=== PATIENT | female | born 1990 | race Caucasian/White ===

== ENCOUNTER 2019-07-07 00:05 | Inpatient (IN) | payer BC, SELFPAY ==
[2019-07-07] VITALS (95 sets, daily range): BP systolic 95–168; BP diastolic 43–105; PULSE 52–199; RESP 16; TEMP 36.6–36.7; O2SAT 98–100; BMI 32.8
[2019-07-07 01:10] LABS: Basophils Percent Auto 0.3 % (0.2-1.2); Hematocrit 34.8 % (37.0-47.0); Hemoglobin 11.6 g/dL (12.0-15.0); Immature Granulocyte Absolute 0.07 K/mm3 (0.00-0.031); Immature Granulocyte Percent A 0.5 % (0-0.5); Lymphocytes Absolute Auto 2.93 K/mm3 (0.9-3.2); Lymphocytes Percent Auto 21.1 % (18.3-44.2); Mean Corpuscular HGB Conc 33.3 g/dl (32-36); Mean Corpuscular Hemoglobin 28.1 pg (26-34); Mean Corpuscular Volume 84.3 fl (80-100); Mean Platelet Volume 12.5 fl (7.4-10.4); Monocytes Absolute Auto 0.9 K/mm3 (0.1-0.6); Monocytes Percent Auto 6.5 % (2.6-8.5); Neutrophils Percent Auto 71.6 % (45.5-73.1); Platelet Count Result 251 k/mm3 (150-375); Red Blood Count 4.13 M/mm3 (4.2-5.4); Red Cell Distribution Width 13.6 % (11.5-14.5); White Blood Count 13.9 K/mm3 (4.5-10.0)
[2019-07-07] MEDS: DINOPROSTONE 10 MG VAG INSERT VAGINAL (01:15)
--- NOTE | 2019-07-07 08:32 | WPDANESEPP ---
Anes - Eval Pre Procedure Procedure: Labor epidural Date/Time: 07/07/19 08:32 Surgeon: [place] Preop Diagnosis: pain during labor Pre Op Diagnosis: Induction Patient Data Age: 28 Gender: F Height: 1.78 m Weight: 104 kg Last Vital Signs Temp 36.7 C 07/07/19 08:16 Pulse 60 07/07/19 08:30 BP 108/61 07/07/19 08:30 Allergies Allergy/AdvReac Type Severity Reaction Status Date / Time amoxicillin Allergy Swelling Verified 06/15/19 15:41 Penicillins Allergy Swelling Verified 06/15/19 15:41 sulfamethoxazole Allergy Swelling Verified 06/15/19 15:41 [From Bactrim] trimethoprim [From Bactrim] Allergy Swelling Verified 06/15/19 15:41 Home Medications Medication Instructions Recorded Confirmed Type PNV cmb#95-ferrous fumarate-FA 1 tablet PO DAILY 06/15/19 06/15/19 History [] aspirin [Aspirin Low Dose] 81 mg PO DAILY 06/15/19 06/15/19 History ergocalciferol (vitamin D2) 1,250 mcg PO WEEKLY 06/15/19 06/15/19 History [Vitamin D2] Laboratory Tests 07/07/19 07/07/19 07/07/19 01:04 01:04 01:04 WBC 13.9 K/mm3 H K/mm3 (4.5-10.0) RBC 4.13 M/mm3 L M/mm3 (4.2-5.4) Hgb 11.6 g/dL L g/dL (12.0-15.0) Hct 34.8 % L % (37.0-47.0) MCV 84.3 fl fl (80-100) MCH 28.1 pg pg (26-34) MCHC 33.3 g/dl g/dl (32-36) RDW 13.6 % % (11.5-14.5) Plt Count 251 k/mm3 k/mm3 (150-375) MPV 12.5 fl H fl (7.4-10.4) Immature Gran % (Auto) 0.5 % % (0-0.5) Neut % (Auto) 71.6 % % (45.5-73.1) Lymph % (Auto) 21.1 % % (18.3-44.2) [place] % (Auto) 6.5 % % (2.6-8.5) Eos % (Auto) 0.0 % % (0-4.4) Baso % (Auto) 0.3 % % (0.2-1.2) Lymph # (Auto) 2.93 K/mm3 K/mm3 (0.9-3.2) [place] # (Auto) 0.9 K/mm3 H K/mm3 (0.1-0.6) Eos # (Auto) 0.0 K/mm3 K/mm3 (0-0.3) Baso # (Auto) 0.0 K/mm3 K/mm3 (0.0-0.1) Abs Immat Gran (auto) 0.07 K/mm3 H K/mm3 (0.00-0.031) Absolute Neuts (auto) 10.0 K/mm3 H K/mm3 (1.3-6.7) Absolute Nucleated RBC 0.0 K/mm3 K/mm3 (0.0-0.012) Nucleated RBC % 0.0 % % (0.0-0.2) RPR Pending Blood Type A Positive Antibody Screen Negative Patient hx anesthesia problems: none Family hx anesthesia problems: none PMFSH Past Medical History Medical History (Updated 07/07/19 @ 08:33 by Lisa Swanson CRNA) Intrauterine Obesity (BMI 30-39.9) Family History Family History (Updated 06/15/19 @ 15:43 by Linda Diana RN) Other Unknown family medical history Social History Social History Smoking status: Never smoker Substance use: never Spiritual care concerns: No Exam Day of Procedure 07/07/19 08:32
--- NOTE | 2019-07-07 08:37 | WPDOBADMIT ---
Obstetrics - Admit Note Admission Note: record reviewed. No pertinent additions to the history and/or any subsequent changes in the physical findings that are not consistent with the expected course of the were found. Additions to the history and/or subsequent changes in the physical findings follow. None. Here for MIL. Cervix now 1-/-2 AROM with clear fluld. FHTs reactive
[2019-07-07 08:47] LABS: Rapid Plasma Reagin Non-Reactive (NonReactive)
[2019-07-07] MEDS: OXYTOCIN 30 UNITS/NS 500 ML 30 UNITS/500 ML BAG 6 UNITS IV CONT (09:42)
[2019-07-07] MEDS: LACTATED RINGERS 1,000 ML 125 ML IV CONT ×3 (09:42→15:50)
--- NOTE | 2019-07-07 17:32 | PM.OBPRVD ---
OB - Delivery Note Procedure Delivery date: 07/07/19 Procedure: events: Labor Induction Intrapartal events: None Induction method: AROM and per pitocin protocol Delivery monitor: external FHT and external uterine Route of delivery: Laceration description: Perineal - 2nd Degree Delivery repair: vicryl (3-0) Specimen: No Estimated blood loss (mL): 200 Anesthesia type: Local Disposition: floor [place] Baby Date of : 07/07/19 Weeks of gestation at delivery: 39 Weight (pounds): 7 Weight (ounces): 5 presentation: vertex Placenta delivery description: Spontaneous cord vessel description: 3 Vessels score one minute: 9 score five minutes: 9
--- NOTE | 2019-07-07 17:34 | PM.OBDSVD ---
DS: Diagnosis Discharge Diagnosis (1) 39 weeks gestation of : Code(s): Z3A.39 - 39 weeks gestation of Status: Acute (2) (normal spontaneous vaginal delivery): Code(s): O80 - Encounter for full-term uncomplicated delivery Status: Acute OB - DS: Summary OB Procedures : Ultrasound OB Procedures Intrapartum: Spontaneous Vag Delivery OB Procedures: : None Peripartum Data Delivery Method: Natural Vaginal Laceration description: Perineal - 2nd Degree complications: none Status at Discharge Functional status at discharge: independent ambulation Overall status at discharge: patient is progressing back to baseline Time Spent with Patient Time attestation: Total time spent providing and/or coordinating discharge services: DS: Data Data Completed and Pending Labs on day of discharge: Labs from last 24 hours 07/07/19 07/07/19 07/07/19 01:04 01:04 01:04 WBC 13.9 H RBC 4.13 L Hgb 11.6 L Hct 34.8 L MCV 84.3 MCH 28.1 MCHC 33.3 RDW 13.6 Plt Count 251 MPV 12.5 H Immature Gran % (Auto) 0.5 Neut % (Auto) 71.6 Lymph % (Auto) 21.1 [place] % (Auto) 6.5 Eos % (Auto) 0.0 Baso % (Auto) 0.3 Lymph # (Auto) 2.93 [place] # (Auto) 0.9 H Eos # (Auto) 0.0 Baso # (Auto) 0.0 Abs Immat Gran (auto) 0.07 H Absolute Neuts (auto) 10.0 H Absolute Nucleated RBC 0.0 Nucleated RBC % 0.0 RPR Non-reactive Blood Type A Positive Antibody Screen Negative Discharge Plan Discharge Attending physician on discharge: Gege Haley Discharging Clinician: Gege Haley Anticipated Discharge Date/Time: 07/09/19 07:34 Patient Disposition: Home, Self-Care Activity: pelvic rest Diet: regular Patient Instructions: Antibiotic Form Stand Alone Forms: General Discharge Information Follow-up/Referrals: Gege Haley MD [Physician] - 6 Weeks Discharge Medications: Continued ergocalciferol (vitamin D2) [Vitamin D2] 1,250 mcg (50,000 unit) Capsule 1,250 mcg PO WEEKLY RF: 0 PNV cmb#95-ferrous fumarate-FA [] 28 mg iron- 800 mcg Tablet 1 tablet PO DAILY RF: 0 Discontinued aspirin [Aspirin Low Dose] 81 mg Tablet,Delayed Release (Dr/Ec) 81 mg PO DAILY RF: 0 Date of admission: 07/07/19 00:05 Primary Care Provider: UNKNOWN,DOCTOR Admitting Provider: Gaviota Osborne Attending physician on admission: Gaviota Osborne Condition: Stable Care Plan Goals: Paragard vs Mirena IUD for bc
[2019-07-07] MEDS: OXYTOCIN 30 UNITS/NS 500 ML 30 UNITS/500 ML BAG 125 UNITS IV CONT (17:35)
[2019-07-07] MEDS: IBUPROFEN 600 MG TABLET PO (18:17)
--- NOTE | 2019-07-07 20:07 | OBPPTRN ---
Patient and infant transferred to post room #283 via (wheelchair ). Support person present. Oriented to unit, room, information board, rooming in, admission packet and security measures. Patient verbalizes understanding.
[2019-07-08 03:20] LABS: Hematocrit 32.8 % (37.0-47.0); Hemoglobin 10.8 g/dL (12.0-15.0)
[2019-07-08] MEDS: IBUPROFEN 600 MG TABLET PO ×3 (07:24→19:30)
[2019-07-08] MEDS: MULTIVIT/MIN/PREN/FOL AC/IRON TABLET 1 TAB PO (07:24)
--- NOTE | 2019-07-08 07:45 | PC.NURSE ---
Consulted with patient, mother reports infant has been sleepy and not had a good feeding since 0145. R viewed feeding cues, frequencies, duration of feedings, feeding elimination flow sheet, and signs of adequate intake. Demonstrated stimulation techniques to wake for feeding. Assisted with to breast. Reviewed positioning/alignment in football, holding breast in C hold and guided asymmetrical latch on. Several attempts before was able to latch correctly. Infant nursed eagerly for short bursts followed with long pausing, then release latch and root and latch. Reviewed signs of a correct latch, effective nursing and suck swallow ratio. Nipple care reviewed. Advised to stimulate to keep awake and nursing to assist with maintaining latch. Instructed mother to call out for RN assistance if she is unable to latch for feeding or she has discomfort with nursing. Instructed feeding should be initiated three hours from start of last feeding or if feeding cues are noted before. Mother voiced understanding of information shared.
--- NOTE | 2019-07-08 08:07 | WPDANLDPN2 ---
Anes-Prog Note L&D Date/Time: 07/08/19 08:07 Comfortable throughout: labor and delivery Neuraxial method: epidural Epidural/Spinal procedure site: clean & non-tender Neuro status: Neuro function grossly intact. Cardiovascular status: normal Respiratory status: normal Airway patency: baseline Mental status: baseline Post-Op hydration status: normal Vital Signs: Last Vital Signs Temp 36.7 C 07/07/19 20:15 Pulse 63 07/07/19 20:15 Resp 16 07/07/19 20:15 BP 126/55 L 07/07/19 20:15 Pulse Ox 100 07/07/19 13:33 I/O: Intake & Output 07/07/19 07/08/19 07/08/19 23:59 07:59 15:59 Intake Total 1500 Output Total 140 Balance 1360 Post-procedural complaints: none Patient feedback: Patient satisfied with anesthetic care.
[2019-07-08 08:15] VITALS: BP 127/75; PULSE 67; RESP 18; TEMP 37.1; O2SAT 100
--- NOTE | 2019-07-08 11:30 | PM.OBPNVD ---
OB - PN: Subj Subjective Date/time seen: 07/08/19 11:30 Patient comments: no complaints, pain well controlled, tolerating diet and flatus present [place] baby status: doing well and nursing well feeding status: exclusively breast feeding OB - PN: Obj Data Labs CBC & Chem 7: 07/08/19 03:07 Labs: Laboratory Results - last 24 hr 07/08/19 03:07 Hgb 10.8 L Hct 32.8 L OB - PN A/P Plan day: 1 Plan: routine care Time Spent With Patient Time: Total time spent is greater than 50% in coordination of care (as documented) at patient's floor/unit and/or counseling patient: Time with patient: less than 15 minutes Review of Systems Constitutional: Constitutional: Reports no additional constitutional complaints Cardiovascular: Cardiovascular: Reports no additional cardiovascular complaints Respiratory: Respiratory: Reports no additional respiratory complaints Gastrointestinal: Gastrointestinal: Reports no additional gastrointestinal complaints Genitourinary: Genitourinary: Reports no additional female genitourinary complaints Exam Const: General: comfortable, no acute distress, alert and awake Resp: Effort & Inspection: normal respiratory effort Auscultation: clear to auscultation bilaterally Cardio: Rate: regular rate GI: Auscultation: normal bowel sounds Other: Fundus: Firm Below umbilicus
--- NOTE | 2019-07-08 11:45 | PC.NURSE ---
Mother called out for assist with feeding. Demonstrated stimulation techniques to wake for feeding. Assisted with infant to breast. Reviewed positioning/alignment in cross cradle, holding breast in U hold and guided asymmetrical latch on. Discussed rational for each. is sleepy and makes little effort to wake to suckle. Several attempts to latch, was unable to latch correctly. Explained and offered a nipple shield, mother is willing to attempt latch with shield. Nipple shield provided to mother due to ineffective feeding. Discussed nipple shield precautions and possible complications. Instructions given on application and cleaning of shield. Patient able to return demonstration on proper application of shield. Discussed the need to initiate pumping if infant continues to nurse with the shield. Patient verbalizes understanding. with shield in place infant was able to latch correctly. nursed sleepily with short bursts of suckling followed with long pausing, occasional swallowing noted. Reviewed signs of a correct latch, effective nursing and suck swallow ratio. was able to maintain latch without discomfort to mother. Nipple care reviewed. Parents are concerned with infant feeding status. Reviewed is WNL at this time for signs of adequate intake. Parents would like to supplement after breastfeedings until infant is more awake and eagerly feeding.
--- NOTE | 2019-07-08 12:30 | PC.NURSE ---
Breast pump provided due to ineffective feeding/nipple shield use. Instructions given on breast pump care and usage, pumping schedule, nipple care, and collection and storage of breast milk. Encouraged [id number], breast massage and manual expression to stimulate supply. Assessed patient for correct flange size, placement and draw. Patient verbalizes and demonstrates understanding of instructions.
[2019-07-08 19:25] VITALS: BP 114/57; PULSE 63; RESP 16; TEMP 36.8
[2019-07-09] MEDS: IBUPROFEN 600 MG TABLET PO ×2 (04:19→09:51)
[2019-07-09] MEDS: WITCH HAZEL 40 PADS 1 PAD TOPICAL (04:19)
--- NOTE | 2019-07-09 07:37 | PM.OBPNVD ---
OB - PN: Subj Subjective Date/time seen: 07/09/19 07:37 Patient comments: no complaints and pain well controlled baby status: doing well and nursing well OB - PN: Obj Data Labs CBC & Chem 7: 07/08/19 03:07 OB - PN A/P Plan day: 2 Plan: routine care, discharge home, follow up 6 weeks and other (unsure if wants paragard or Mirena IUD) Time Spent With Patient Time: Total time spent is greater than 50% in coordination of care (as documented) at patient's floor/unit and/or counseling patient: Exam : Bimanual exam- vagina & uterus: other (Uterus firm, nt @U)
[2019-07-09 07:50] VITALS: BP 99/62; PULSE 59; RESP 18; TEMP 37.2; O2SAT 100
--- NOTE | 2019-07-09 09:30 | PC.NURSE ---
Mother is able to independently latch with appropriate positioning/alignment using nipple shield. She denies any nipple discomfort, is feeding as required and waking to feed if needed. Infant continues with ineffective feeding and requires 30 mls supplementation after each . Infant is more eager with attempts and duration. Mother will continue to pump and offer EBM as available as part of supplement. Infant is currently meeting outcomes for weight, output, jaundice and feeding frequencies. Mother states she feels comfortable with current feeding plan of bottle/ at home. Reviewed transition to breast milk, signs of adequate intake, and engorgement/relief. Instructed to call ICP if intake/output less than required. Reviewed regular medications mother is taking. Information provided per Renata. Reviewed community resources on the [facility] website and in the Mom/Baby guide. Information on outpatient services provided. Mother has no further questions at this time.
[2019-07-09] MEDS: DOCUSATE SODIUM 100 MG CAPSULE PO (09:45)
[2019-07-09] MEDS: MULTIVIT/MIN/PREN/FOL AC/IRON TABLET 1 TAB PO (09:45)
[2019-07-09] MEDS: BENZOCAINE 20% AER SPR (*SP) 56 GM CAN 1 SPRAY TOPICAL (09:51)
--- NOTE | 2019-07-09 11:03 | PC.NURSE ---
Patient viewed the discharge video Mother & Baby Care, The First Two Weeks . Patient was given the opportunity and encouraged to ask questions. Patient verbalized understanding of information shared and has been given the mother/baby guide for home reference.
[2019-07-10 07:56] VITALS: BP 117/66; PULSE 61; RESP 16; TEMP 37; O2SAT 100
== END 2019-07-09 12:40 | disposition home or self-care (01) | DRG 807 ==
LOC: ANHLDR 17:35 → ANHOB2 07-09 10:17 → ANHLDR 07-10 12:54 → ANHOB2 07-10 12:54
PROVIDERS: Admitting Provider Obstetrics & Gynecology Gynecology; Visit Provider Obstetrics & Gynecology Gynecology
DX: O99.214 Obesity complicating childbirth (principal); Z37.0 Single live birth; Z3A.39 39 weeks gestation of pregnancy; E66.9 Obesity, unspecified; O70.1 Second degree perineal laceration during delivery
CPT/HCPCS: 36415; 85014; 85018; 85025; 86592; 86850; 86900; 86901; A9270; J2590; J2795; J7120